=== PATIENT | female | born 2000 | race American Indian/Alaskan Native ===

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

== ENCOUNTER 2019-05-22 08:09 | Emergency (ER) | payer SELFPAY ==
[2019-05-22 08:19] VITALS: BP 115/68
--- NOTE | 2019-05-22 08:59 | Emergency Department Report ---
Chief Complaint: Upper Respiratory Infection Stated Complaint: CHEST PAIN/BODY ACHE/PREG TEST Time Seen by Provider: 05/22/19 08:36 - HPI History of Present Illness: 18-year-old female presents to ED with 3 week history of cough and sneezing. Patient states she's been using TheraFlu at home. Patient reports left-sided chest pain last night, however it was in association with coughing. It is also worse with palpation of the area. Patient states she is also here for a test. Patient states she took a home test but states, "I don't want to believe it." Patient denies any shortness of breath, abdominal pain or vaginal bleeding or fever. - ROS Review of Systems: Constitutional: neg for fever Resp: positive for cough; neg for SOB Musculoskeletal: positive for chest wall pain with cough GI: neg for abdominal pain : neg for vaginal bleeding All other systems negative. - Exam Vital Signs: Vital Signs 05/22/19 08:15 Temperature 97.7 F Pulse Rate 79 Respiratory 15 Rate Blood Pressure 115/68 O2 Sat by Pulse 97 Oximetry Physical Exam: Patient is in no acute distress. Lungs are clear to auscultation bilaterally. Pulses normal and regular. Abdomen soft and nontender. Left anterior chest wall is tender to palpation. MSE screening note: Focused history and physical exam performed. Due to findings the following was ordered: N/A ED Medical Decision Making - Medical Decision Making Medical screening exam performed. Vitals are normal. She appears nontoxic. She is in no distress. Patient does not have an emergent condition at this time. She will be given outpatient resources. - Differential Diagnosis URI, bronchitis, ED Disposition for MSE Clinical Impression: Upper respiratory infection, Encounter for test Disposition: MED SCREENING EXAM-LEFT Condition: Stable Referrals: [facility] [Provider Group] - BABS CONTRERAS MD [Staff Physician] - [facility] [Outside] - [facility] Time of Disposition: 09:01
== END 2019-05-22 09:06 | disposition left against medical advice (07) ==
LOC: ED 08:09
DX: J06.9 Acute upper respiratory infection, unspecified (principal); Z32.00 Encounter for pregnancy test, result unknown

== ENCOUNTER 2019-06-21 13:32 | Emergency (ER) | payer SELFPAY | END 2019-06-22 02:19 | LOC: ED 13:32 | DX: R10.9 Unspecified abdominal pain (principal); Z53.21 Procedure and treatment not carried out due to patient leaving prior to being seen by health care provider ==

== ENCOUNTER 2019-12-01 11:27 | Outpatient (CLI) | payer MEDICAID ==
[2019-12-01 11:42] VITALS: BP 137/76
[2019-12-01] MEDS ORDERED: LACTATED RINGERS 500 ML IV ONE (12:00)
--- NOTE | 2019-12-01 15:28 | Ultrasound Report ---
US OB LIMITED INDICATION / CLINICAL INFORMATION: SPOTTING--CHECK PLACENTA. COMPARISON: None available. FINDINGS: There is a single intrauterine in a cephalic presentation. The heart rate is 138 bpm. The placenta is located anteriorly, is grade 1 and is free of the os. There is no evidence of abrupt ion or other significant abnormality. Signer Name: Cristopher Choe MD Signed: 12/01/2019 3:23 PM Workstation Name: [id number]
== END 2019-12-01 13:39 | disposition home or self-care (01) ==
LOC: TRG 11:27 → APU 11:28 → TRG 13:39
PROVIDERS: ATTEND Obstetrics & Gynecology
DX: O26.853 Spotting complicating pregnancy, third trimester (principal); Z3A.33 33 weeks gestation of pregnancy
CPT/HCPCS: 76815

== ENCOUNTER 2021-03-03 14:54 | Outpatient (CLI) | payer MEDICAID ==
[2021-03-03 16:03] VITALS: BP 131/62
== END 2021-03-03 16:49 | disposition home or self-care (01) ==
LOC: TRG 14:54 → APU 15:33 → TRG 16:49
DX: O26.853 Spotting complicating pregnancy, third trimester (principal); Z3A.38 38 weeks gestation of pregnancy
CPT/HCPCS: 59025

== ENCOUNTER 2021-03-07 15:23 | Outpatient (CLI) | payer MEDICAID ==
[2021-03-07 18:13] VITALS: BP 123/65
== END 2021-03-07 18:25 | disposition home or self-care (01) ==
LOC: TRG 15:23 → APU 15:24 → TRG 18:25
DX: Z34.93 Encounter for supervision of normal pregnancy, unspecified, third trimester (principal); Z3A.38 38 weeks gestation of pregnancy
CPT/HCPCS: 59025